=== PATIENT | male | born 1990 | race African-American/Black ===

== ENCOUNTER 2017-09-09 07:16 | Emergency (ER) | payer OTHER ==
[~2017-09-09] VITALS: Ht 185.4 cm; Wt 103.0 kg
[~2017-09-09 07:16] MED LIST: ALUM35SO TP; MELO7.5T29 PO; ONDA4TAB10 SL
[2017-09-09 07:28] VITALS: BP 118/62
[2017-09-09] MEDS ORDERED: AMOX500T PO (07:31)
[2017-09-09] MEDS ORDERED: IBUP800T19 PO (07:31)
--- NOTE | 2017-09-09 07:59 | ED.ADGEN ---
Past History Past Medical History: No Pertinent History Past Surgical History: No Surgical History Smoking: Non-smoker Alcohol Use: None Drug Use: None Adult General HPI HPI Patient is a 27 year old male who presents with sore throat. She has had sore throat over the last 48 hours. He complains of pain over the left part of the posterior oral pharynx. He has had a fever last night. No cough. No upper respiratory symptoms. No rash. No neck stiffness. Review of Systems Review of Systems Constitutional: + fever Eyes: Denies change in visual acuity HENT: Denies nasal congestion Respiratory: Denies cough or shortness of breath Cardiovascular: No additional information GI: Denies abdominal pain, nausea, vomiting Musculoskeletal: Denies back pain Integument: Denies rash or skin lesions Neurologic: + headache All other systems were reviewed and found to be within normal limits, except as documented in this note. Current Medications Current Medications Current Medications Medications (Trade) Dose Ordered Sig/Arian Start Time Stop Time Status Last Admin Dose Admin Amoxicillin (Amoxil) 500 mg 1X ONCE 09/09/17 08:00 09/09/17 08:00 DC 09/09/17 07:56 500 MG Dexamethasone Sodium Phosphate (Decadron) 10 mg 1X ONCE 09/09/17 08:00 09/09/17 08:00 DC 09/09/17 07:56 10 MG Allergies Allergies Allergies Coded Allergies Type Severity Reaction Last Updated Verified No Known Drug Allergies 09/26/13 No Physical Exam Physical Exam Constitutional: Well developed, well nourished, no acute distress, non-toxic appearance HENT: Normocephalic, atraumatic, bilateral external ears normal, oropharynx moist, injection and exudates over the posterior oral pharynx, worse on the left compared to the right Eyes: PERRLA, EOMI, conjunctiva normal Neck: Normal range of motion, supple Cardiovascular:Heart rate regular rhythm, no murmur Lungs & Thorax: Bilateral breath sounds clear to auscultation Abdomen: Bowel sounds normal, soft, no tenderness Skin: Warm, dry, no erythema Neurologic: Alert and oriented X 3 Psychologic: Affect normal Current Patient Data Vital Signs Vital Signs Date Time Temp Pulse Resp B/P (MAP) Pulse Ox O2 Delivery O2 Flow Rate FiO2 09/09/17 07:28 98.9 82 18 97 Room Air EKG EKG [] Radiology/Procedures Radiology/Procedures [] Course & Med Decision Making Course & Med Decision Making Pertinent Labs and Imaging studies reviewed. (See chart for details) Seen and examined for strep throat. Given 10 mg decadron for pain. d/c to home with ibuprofen and amoxicillin. Patient is agreeable. Return precautions discussed and all of his questions are answered prior to discharge home. Final Impression Final Impression Strep Pharyngitis Alvaro Disclaimer Dragon Disclaimer This electronic medical record was generated, in whole or in part, using a voice recognition dictation system. ALEX ALLEN DO Sep 09, 2017 07:59
[2017-09-09] MEDS ORDERED: DEXAMETHASONE SOD PHOS 10 MG/ML VIAL PO ONE (08:00)
[2017-09-09] MEDS ORDERED: AMOXICILLIN 250 MG CAPSULE PO ONE (08:00)
== END 2017-09-09 07:56 | disposition home or self-care (01) ==
LOC: ER 07:16
DX: J02.0 Streptococcal pharyngitis (principal); B95.5 Unspecified streptococcus as the cause of diseases classified elsewhere
CPT/HCPCS: 99283; J1100